=== PATIENT | female | born 1950 | race African-American/Black ===

== ENCOUNTER 2020-11-11 07:59 | Emergency (ER) | payer OTHER ==
[~2020-11-11] VITALS: Ht 160 cm; Wt 85.1 kg
[2020-11-11 08:11] VITALS: Ht 160 cm; Wt 85.1 kg
[2020-11-11] MEDS ORDERED: LISINOPRIL10 MG PO (08:17)
[2020-11-11] MEDS ORDERED: HUMALOG 30100 UNITS/ (08:18)
[2020-11-11] MEDS ORDERED: LANTUS INS100 UNITS/ SC (08:20)
[2020-11-11] MEDS ORDERED: ACETAMINOPHEN500 M1 PO (09:26)
[2020-11-11] MEDS ORDERED: CYCLOBENZAPRINE10 MG PO (09:26)
[2020-11-11] MEDS ORDERED: MEDROL DOSE PACK4 MG PO (09:26)
[2020-11-11 11:24] VITALS: BP 173/90
== END 2020-11-12 06:33 | disposition home or self-care (01) ==
LOC: D.ER 07:59
DX: M54.31 Sciatica, right side (principal); M79.10 Myalgia, unspecified site; E11.9 Type 2 diabetes mellitus without complications; Z79.4 Long term (current) use of insulin